=== PATIENT | male | born 1945 | race Caucasian/White ===

== ENCOUNTER → 2023-02-23 11:33 | Outpatient (CLI) | payer OTHER, SELFPAY ==
--- NOTE | 2023-02-23 11:40 | DI.MRI.S_ITS ---
PROCEDURE: MR BRAIN (PITUITARY) WWO CON INDICATIONS: Clonic hemifacial spasm, left. Additional history is also gathered prior trans-sphenoidal resection of a pituitary macroadenoma. TECHNIQUE: Noncontrast sagittal and axial FLAIR, axial gradient echo, axial diffusion and ADC through the brain. Thin-slice sagittal and coronal T1 spin echo, coronal T2 fast spin echo through the pituitary. After the administration contrast, optional dynamic coronal T1 spin echo, thin-slice coronal and sagittal T1 spin echo images through the pituitary fossa; axial and coronal and sagittal T1 spin echo with fat saturation through the brain. COMPARISON: None. FINDINGS: Image quality: Excellent. Pituitary Gland: Prior trans-sphenoidal resection change can be seen. Relatively prominent (yet uniformly enhancing) pituitary tissue can be seen. The pituitary stalk is minimally deviated to the left. A normal pituitary T1 hyperintense bright spot can be seen posteriorly. The optic chiasm and ventral forebrain demonstrate an unremarkable appearance. CSF Spaces: Ventricles are normal in size and shape. Basal cisterns are patent. No extra-axial fluid collections. Brain: No intracranial bleeds or mass effects. No abnormal intracranial enhancement. Gonzalez-white matter interface is intact. Diffusion weighted images demonstrate no acute ischemic insults. Brainstem is normal. Normal intravascular flow voids are present. Skull and face: Calvarial marrow is normal in signal. Orbits appear normal. Sinuses: Sinuses and mastoids are clear. IMPRESSION: No imaging explanation is found for this patient's presenting symptoms. Prior trans-sphenoidal resection change can be seen. Normal likely residual pituitary tissue seen, without viet masses identified. The pituitary stalk is minimally deviated to the left. Dictated by: Rick Simental M.D. on 02/23/2023 at 12:56 Approved by: Rick Simental M.D. on 02/23/2023 at 13:00
== END ==
PROVIDERS: Referring Provider Psychiatry & Neurology Neurology; Visit Provider Psychiatry & Neurology Neurology
DX: G51.32 Clonic hemifacial spasm, left (principal)
CPT/HCPCS: 70553